=== PATIENT | male | born 1950 | race Caucasian/White ===

== ENCOUNTER → 2020-04-11 10:07 | Outpatient (BNVA) | payer MEDICARE, MEDICAID, SELFPAY | PROVIDERS: Family Provider Nurse Practitioner Family; PCP Nurse Practitioner Family; Visit Provider Nurse Practitioner Family | DX: Z12.5 Encounter for screening for malignant neoplasm of prostate (principal); M10.9 Gout, unspecified; Z13.220 Encounter for screening for lipoid disorders; I10 Essential (primary) hypertension | CPT/HCPCS: 80053; 80061; 84550; G0103 ==